=== PATIENT | male | born 2000 | race Caucasian/White ===

== ENCOUNTER 2020-01-26 19:51 | Outpatient (REF) | payer BC, SELFPAY ==
[2020-01-28 17:33] LABS: Patient Race White; SARS-CoV-2 RNA Undetected (Undetected); SARS-CoV-2 Specimen Source Nasal
== END 2020-01-26 20:11 ==
LOC: NCHCN 19:51
PROVIDERS: PCP Pediatrics; Visit Provider Internal Medicine
DX: Z20.828 Contact with and (suspected) exposure to other viral communicable diseases (principal)
CPT/HCPCS: U0003